=== PATIENT | male | born 1965 | race Caucasian/White ===

== ENCOUNTER 2024-05-14 08:11 | Day surgery (SDC) | payer MEDICAID ==
[~2024-05-14 08:11] MED LIST: SODIUM CHLORIDE 0.9% 1,000 ML ONE
[2024-05-14] MEDS ORDERED: METO-416 PO (08:24)
[2024-05-14] MEDS ORDERED: LOSA-382 PO (08:24)
[2024-05-14] MEDS ORDERED: AMLO5TAB66 PO (08:24)
[2024-05-14] MEDS: SODIUM CHLORIDE 0.9% 1,000 ML IV ONE (09:07)
== END 2024-05-14 14:05 | disposition home or self-care (01) ==
LOC: SURGERY 08:11
PROVIDERS: ATTEND Internal Medicine
DX: R19.4 Change in bowel habit (principal); R19.7 Diarrhea, unspecified; D12.3 Benign neoplasm of transverse colon; D12.4 Benign neoplasm of descending colon; K57.30 Diverticulosis of large intestine without perforation or abscess without bleeding; K64.8 Other hemorrhoids; I10 Essential (primary) hypertension; Z79.899 Other long term (current) drug therapy; Z90.49 Acquired absence of other specified parts of digestive tract; Z96.643 Presence of artificial hip joint, bilateral
CPT/HCPCS: 45385; 45380; 88305; C1769; J7030